=== PATIENT | male | born 1955 | race Caucasian/White ===

== ENCOUNTER 2022-02-05 11:43 | Emergency (ER) | payer OTHER | END 2022-02-05 14:15 | disposition home or self-care (01) | LOC: ERS 11:43 | DX: Z76.0 Encounter for issue of repeat prescription (principal); E11.65 Type 2 diabetes mellitus with hyperglycemia; E78.5 Hyperlipidemia, unspecified; Z79.899 Other long term (current) drug therapy | CPT/HCPCS: 36416; 99284 ==

== ENCOUNTER 2022-08-28 08:50 | Day surgery (SDC) | payer OTHER ==
[2022-08-23 11:28] VITALS: BMI 24.0
[2022-08-28] MEDS ORDERED: Ketorolac Tromethamine 30 MG/ML VIAL ONE (09:24)
[2022-08-28] MEDS ORDERED: Acetaminophen 500 MG TAB ONE (09:25)
[2022-08-28] MEDS ORDERED: fentaNYL PF 100 MCG/2 ML SYRINGE ONE (10:22)
[2022-08-28] MEDS ORDERED: Bupivacaine/Epinephrine 0.25% 30 ML VIAL ONE (10:23)
[2022-08-28] MEDS ORDERED: Sodium Chloride 0.9% 100 ML ONE (10:32)
[2022-08-28] MEDS ORDERED: CEFAZOLIN 2 GM VIAL ONE (10:32)
[2022-08-28] MEDS ORDERED: Dexamethasone 20 MG/5 ML VIAL ONE (10:41)
[2022-08-28] MEDS ORDERED: GLYCOPYRROLATE/PF 0.2 MG/ML VIAL ONE (10:41)
[2022-08-28] MEDS ORDERED: NEOSTIGMINE 3 MG/3 ML SYR 3 MG/3 ML SYRINGE ONE (10:41)
[2022-08-28] MEDS ORDERED: Ondansetron PF 4 MG/2 ML Vial ONE (10:41)
[2022-08-28] MEDS ORDERED: Rocuronium Bromide 10 MG/ML (10ML VIAL) ONE (10:41)
[2022-08-28] MEDS ORDERED: PROPOFOL 200 MG/20 ML VIAL ONE (10:41)
[2022-08-28] MEDS ORDERED: Labetalol HCl 100 MG/20 ML VIAL ONE (10:41)
[2022-08-28] MEDS ORDERED: Lidocaine 1% PF 5 ML VIAL ONE (10:41)
[2022-08-28] MEDS ORDERED: Midazolam HCl 5 mg/5 ml Vial ONE (11:18)
[2022-08-28] MEDS ORDERED: Fentanyl 250 MCG/5 ML VIAL ONE ×2 (12:06→12:07)
[2022-08-28] MEDS ORDERED: Promethazine HCl 25 MG/ML VIAL ONE (12:06)
== END 2022-08-28 14:15 | disposition home or self-care (01) ==
LOC: SDC 08:50
PROVIDERS: ATTEND Specialist
PROC: 0YU54JZ Supplement Right Inguinal Region with Synthetic Substitute, Percutaneous Endoscopic Approach (ICD-10-PCS; principal; 2022-08-28)
PROC: 8E0W4CZ Robotic Assisted Procedure of Trunk Region, Percutaneous Endoscopic Approach (ICD-10-PCS; 2022-08-28)
DX: K40.90 Unilateral inguinal hernia, without obstruction or gangrene, not specified as recurrent (principal); M19.90 Unspecified osteoarthritis, unspecified site; J45.909 Unspecified asthma, uncomplicated; E78.5 Hyperlipidemia, unspecified; E11.9 Type 2 diabetes mellitus without complications; Z87.891 Personal history of nicotine dependence; Z79.4 Long term (current) use of insulin; Z79.899 Other long term (current) drug therapy; Z91.041 Radiographic dye allergy status
CPT/HCPCS: 49650; 71045; C1781; J3490; J1100; J1885; J2250; J2405; J2550; J2704; J3010

== ENCOUNTER 2023-02-01 09:02 | Inpatient (IN) | payer OTHER ==
[2023-02-01 10:01] LABS: #Basophils 0.1 thou/uL (0.0-0.2); #Eosinphils 0.1 thou/uL (0.0-0.7); #Monocytes 0.4 thou/uL (0.11-0.59); #Neutrophils 5.7 thou/uL (1.40-6.50); %Basophils 0.6 % (0.0-1.0); %Eosinophils 1.5 % (0.0-10.0); %Lymphocytes 27.3 % (21.0-51.0); %Monocytes 4.4 % (0.0-10.0); %Neutrophils 65.7 % (42.0-75.0); Hematocrit 48.2 % (42.0-52.0); Hemoglobin 17.4 g/dL (14.0-18.0); Mean Corpuscular HGB CONC 36.1 g/dL (32.0-36.0); Mean Corpuscular Hemoglobin 33.6 pg (27.0-31.0); Mean Corpuscular Volume 93.1 fl (78.0-98.0); Mean Platelet Volume 9.9 fL (7.4-10.4); Platelet Count 193 10x3/uL (130-400); RBC Distribution Width 11.5 % (11.5-14.5); Red Blood Cell (RBC) Count 5.18 mill/uL (4.70-6.10); White Blood Cell (WBC) Count 8.6 10x3/uL (4.8-10.8)
[2023-02-01 10:21] LABS: ALT (SGPT) 37 U/L (8-55); AST (SGOT) 45 U/L (5-34); Albumin 4.8 g/dL (3.4-4.8); Alkaline Phosphatase 104 U/L (40-110); Anion Gap 17 mmol/L (10-20); BUN (Urea Nitrogen) 11 mg/dL (8.4-25.7); Bilirubin, Total 0.8 mg/dL (0.2-1.2); Calc. Creatinine Clearance 0 mL/min (70-130); Calcium 11.2 mg/dL (7.8-10.44); Carbon Dioxide 21 mmol/L (23-31); Chloride 107 mmol/L (98-107); Estimated GFR 68; Globulin 4.1 g/dL (2.4-3.5); Glucose 120 mg/dL (80-115); Lipase 10 U/L (8-78); Potassium 4.2 mmol/L (3.5-5.1); Protein, Total 8.9 g/dL (5.8-8.1); Sodium 141 mmol/L (136-145)
[2023-02-01] MEDS ORDERED: Famotidine/PF 20 mg/2ml Vial ONE (10:23)
[2023-02-01] MEDS ORDERED: diphenhydrAMINE 50 MG/ML VIAL ONE (10:23)
[2023-02-01] MEDS ORDERED: methylPREDNISolone Sod Succ 40 MG VIAL ONE (10:23)
[2023-02-01 10:32] LABS: Bacteria/HPF None Seen HPF (None Seen); Bilirubin Negative (Negative); Blood, Urine Negative (Negative); CAUTI Indications for Culture Dysuria,urgency,freq; Clarity Clear (Clear); Glucose, Urine (Dipstick) Normal (Negative); Ketone, Urine Negative (Negative); Leukocyte Negative Leu/uL (Negative); Nitrite Negative (Negative); Protein, Urine (Dipstick) Negative (Neg-Trace); RBC/HPF 0-3 HPF (0-3); Specific Gravity, Urine 1.007 (1.002-1.036); Squamous Epithelial None Seen HPF (0-3); Urobilinogen Normal mg/dL (Less than 2); WBC/HPF 0-3 HPF (0-3)
[2023-02-01 10:35] LABS: Urine Culture Reflex No No
[2023-02-01 13:14] LABS: Lactic Acid 0.8 mmol/L (0.5-2.2)
[2023-02-01] MEDS ORDERED: Dextrose 5% in Water 1,000 ML IV PRN (13:43)
[2023-02-01] MEDS ORDERED: Glucagon 1 MG/ML KIT IM PRN (13:43)
[2023-02-01] MEDS ORDERED: Dextrose 50% Abboject 50 ML SYRINGE SLOW IVP PRN (13:43)
[2023-02-01 14:28] LABS: Analyzer IN Cardio ER; pH (venous) 7.391 (7.32-7.43)
[2023-02-01 14:29] LABS: Actual Bicarbonate (HCO3v) 23.1 mEq/L (22-28); Base Excess -1.5 mEq/L (-2.0 to +3.0); Calcium, Ionized (venous) 1.16 mmol/L (1.16-1.32); Chloride (VBG) 108 mmol/L (98-106); Hematocrit-VBG 50 % (42.0-52.0); Hemoglobin (Hb) 17.1 g/dL (12.6-17.4); Sodium 142.3 mmol/L (133-146)
[2023-02-01] MEDS ORDERED: Iopamidol-370 76% 500 ML MDV (1 ML CHARGE) ONE (15:31)
[2023-02-01] MEDS ORDERED: HumaLOG 300 UNITS/3 ML VIAL ONE (17:03)
[2023-02-01] MEDS: HumaLOG 300 UNITS/3 ML VIAL SC PRN (17:06)
[2023-02-01] MEDS: Sodium Chloride 0.9% 1,000 ML IV SCH (17:10)
[2023-02-01 18:52] VITALS: BMI 21.0
[2023-02-01] MEDS: Insulin Glargine 30 UNITS/0.3 ML VIAL SC SCH (20:42)
[2023-02-01] MEDS: Atorvastatin Calcium 40 MG TAB PO SCH (20:43)
[2023-02-01] MEDS: Dexamethasone 4 mg/ml Vial SLOW IVP SCH ×2 (20:43→23:49)
[2023-02-02 05:46] LABS: #Monocytes 0.2 thou/uL (0.11-0.59); #Neutrophils 11.3 thou/uL (1.40-6.50); %Basophils 0.1 % (0.0-1.0); %Lymphocytes 8.4 % (21.0-51.0); %Monocytes 1.2 % (0.0-10.0); %Neutrophils 89.7 % (42.0-75.0); Hematocrit 45.9 % (42.0-52.0); Hemoglobin 15.6 g/dL (14.0-18.0); Mean Corpuscular Hemoglobin 33.5 pg (27.0-31.0); Mean Platelet Volume 9.9 fL (7.4-10.4); Platelet Count 191 10x3/uL (130-400); RBC Distribution Width 11.8 % (11.5-14.5); Red Blood Cell (RBC) Count 4.65 mill/uL (4.70-6.10); White Blood Cell (WBC) Count 12.6 10x3/uL (4.8-10.8)
[2023-02-02 05:52] LABS: Mean Corpuscular Volume 98.7 fl (78.0-98.0)
[2023-02-02] MEDS: Sodium Chloride 0.9% 1,000 ML IV SCH ×3 (05:59→21:46)
[2023-02-02] MEDS: Dexamethasone 4 mg/ml Vial SLOW IVP SCH ×2 (06:00→11:51)
[2023-02-02 06:15] LABS: ALT (SGPT) 29 U/L (8-55); AST (SGOT) 35 U/L (5-34); Albumin 3.9 g/dL (3.4-4.8); Alkaline Phosphatase 83 U/L (40-110); Anion Gap 13 mmol/L (10-20); BUN (Urea Nitrogen) 14 mg/dL (8.4-25.7); Bilirubin, Total 0.4 mg/dL (0.2-1.2); Calc. Creatinine Clearance 55 mL/min (70-130); Calcium 9.4 mg/dL (7.8-10.44); Carbon Dioxide 25 mmol/L (23-31); Cardiac Risk 3.7 (Less than 4.5); Chloride 102 mmol/L (98-107); Cholesterol 202 mg/dl (< 200 Desired); Estimated GFR 68; Globulin 3.3 g/dL (2.4-3.5); Glucose 206 mg/dL (80-115); HDL Cholesterol 55 mg/dL (>60 Neg Risk); LDL Cholesterol, Calculated 139 mg/dL; Potassium 4.8 mmol/L (3.5-5.1); Protein, Total 7.2 g/dL (5.8-8.1); Sodium 135 mmol/L (136-145); Triglycerides 41 mg/dL (Less than 150)
[2023-02-02] MEDS: Tamsulosin HCl 0.4 MG CAP PO SCH (08:05)
[2023-02-02] MEDS: Sertraline 100 MG TAB PO SCH (08:05)
[2023-02-02] MEDS: HumaLOG 300 UNITS/3 ML VIAL SC PRN ×3 (08:07→18:33)
[2023-02-02] MEDS ORDERED: Aspirin 81 mg Enteric Coated Tablet PO SCH (09:00)
[2023-02-02 11:10] LABS: Hemoglobin A1c 8.4 % (4.0-6.0)
[2023-02-02] MEDS ORDERED: Magnevist 469MG/ML 20 ML VIAL ONE (15:48)
[2023-02-02] MEDS ORDERED: Tamsulosin HCl 0.4 MG CAP PO SCH (21:00)
[2023-02-02] MEDS: Insulin Glargine 30 UNITS/0.3 ML VIAL SC SCH (21:47)
[2023-02-02] MEDS: Atorvastatin Calcium 40 MG TAB PO SCH (21:48)
[2023-02-03] MEDS: Tamsulosin HCl 0.4 MG CAP PO SCH (08:34)
[2023-02-03] MEDS: Sodium Chloride 0.9% 1,000 ML IV SCH ×2 (08:34→21:18)
[2023-02-03] MEDS: Sertraline 100 MG TAB PO SCH (08:35)
[2023-02-03 08:49] LABS: INR-International Normal Ratio 1.1; PTT 24.3 sec (22.9-36.1); Prothrombin Time 14.3 sec (12.0-14.7)
[2023-02-03 09:11] LABS: Amphetamine Not Detected (NotDetected); Barbiturates Screen Not Detected (NotDetected); Benzodiazepine Screen Not Detected (NotDetected); Cocaine Metabolite Screen Not Detected (NotDetected); Methadone Not Detected (NotDetected); Methamphetamine Not Detected (NotDetected); Opiate Screen Not Detected (NotDetected); Oxycodone Screen Not Detected (NotDetected); Phencyclidine (PCP) Not Detected (NotDetected); THC/Cannabinoid Screen Detected (NotDetected); Tricyclic Screen Not Detected (NotDetected)
[2023-02-03 09:15] LABS: Thyroid Stimulating Hormone 1.4334 uIU/mL (0.35-4.94)
[2023-02-03 09:22] LABS: Vitamin B12 563 pg/mL (211-911)
[2023-02-03 09:29] LABS: HIV (1/2) Antibody/Antigen Non-Reactive (NonReactive); HIV 1/2 INDEX 0.41 S/CO (<1.00)
[2023-02-03 12:45] LABS: CSF, Glucose 118 mg/dl (40-70); CSF, Protein 71 mg/dL (15-40)
[2023-02-03 13:00] LABS: CSF Source CSF; CSF WBC/NonHematics Count-Man 2 /cu.mm (0-5); Clarity Clear (Clear); Tube # 4
[2023-02-03 13:01] LABS: CSF RBC Count - Manual 1 /cu.mm (None Seen)
[2023-02-03] MEDS: HumaLOG 300 UNITS/3 ML VIAL SC PRN (14:10)
[2023-02-03] MEDS ORDERED: Insulin Glargine 30 UNITS/0.3 ML VIAL SC SCH (21:00)
[2023-02-03] MEDS: Insulin Glargine 30 UNITS/0.3 ML VIAL SC SCH (21:19)
[2023-02-03] MEDS: Atorvastatin Calcium 40 MG TAB PO SCH (21:19)
[2023-02-04] MEDS: Sodium Chloride 0.9% 1,000 ML IV SCH ×3 (03:53→21:51)
[2023-02-04] MEDS: Sertraline 100 MG TAB PO SCH (09:16)
[2023-02-04] MEDS: Tamsulosin HCl 0.4 MG CAP PO SCH (09:16)
[2023-02-04 10:54] LABS: Syphilis Antibody Nonreactive (Nonreactive); Syphilis Antibody Index 0.04 S/CO (<1.00 Non-Reactive)
[2023-02-04] MEDS: HumaLOG 300 UNITS/3 ML VIAL SC PRN (13:34)
[2023-02-04] MEDS: Atorvastatin Calcium 40 MG TAB PO SCH (21:04)
[2023-02-04] MEDS: Insulin Glargine 30 UNITS/0.3 ML VIAL SC SCH (21:04)
[2023-02-05] MEDS: Tamsulosin HCl 0.4 MG CAP PO SCH (09:16)
[2023-02-05] MEDS: Sertraline 100 MG TAB PO SCH (09:16)
[2023-02-05] MEDS: Sodium Chloride 0.9% 1,000 ML IV SCH ×2 (09:18→23:14)
[2023-02-05] MEDS: Senokot S 8.6-50 MG TAB PO PRN (10:34)
[2023-02-05 13:42] LABS: ANA Symphony (Qualitative) Negative (Negative); ANA Symphony (Quantitative) 0.3 Ratio (< 0.7 Negative)
[2023-02-05 13:43] LABS: Jo-1 IgG Antibody Less than 0.3 EliAU/mL (<7 Negative)
[2023-02-05] MEDS: Atorvastatin Calcium 40 MG TAB PO SCH (20:34)
[2023-02-05] MEDS: Insulin Glargine 30 UNITS/0.3 ML VIAL SC SCH (20:34)
[2023-02-05] MEDS: HumaLOG 300 UNITS/3 ML VIAL SC PRN (23:13)
[2023-02-06] MEDS: Sodium Chloride 0.9% 1,000 ML IV SCH ×2 (03:25→14:50)
[2023-02-06] MEDS: Tamsulosin HCl 0.4 MG CAP PO SCH (08:29)
[2023-02-06] MEDS: Sertraline 100 MG TAB PO SCH (08:29)
[2023-02-06] MEDS: HumaLOG 300 UNITS/3 ML VIAL SC PRN ×2 (14:40→20:08)
[2023-02-06] MEDS: Insulin Glargine 30 UNITS/0.3 ML VIAL SC SCH (20:06)
[2023-02-06] MEDS: Atorvastatin Calcium 40 MG TAB PO SCH (20:06)
[2023-02-06] MEDS: Acetaminophen 325 MG TAB PO PRN (21:33)
[2023-02-07] MEDS: Tamsulosin HCl 0.4 MG CAP PO SCH (08:42)
[2023-02-07] MEDS: Sertraline 100 MG TAB PO SCH (08:42)
[2023-02-07] MEDS ORDERED: Tamsulosin HCl 0.4 MG CAP PO SCH (09:00)
[2023-02-07] MEDS ORDERED: Sertraline 25 MG TAB PO SCH (09:00)
[2023-02-07] MEDS: HumaLOG 300 UNITS/3 ML VIAL SC PRN (18:24)
[2023-02-07] MEDS: Atorvastatin Calcium 40 MG TAB PO SCH (21:03)
[2023-02-07] MEDS: Senokot S 8.6-50 MG TAB PO PRN (21:03)
[2023-02-07] MEDS: Insulin Glargine 30 UNITS/0.3 ML VIAL SC SCH (21:03)
[2023-02-08] MEDS: Tamsulosin HCl 0.4 MG CAP PO SCH (08:13)
[2023-02-08] MEDS: Sertraline 100 MG TAB PO SCH (08:13)
[2023-02-08] MEDS: Senokot S 8.6-50 MG TAB PO PRN (20:04)
[2023-02-08] MEDS: Atorvastatin Calcium 40 MG TAB PO SCH (20:04)
[2023-02-08] MEDS: Insulin Glargine 30 UNITS/0.3 ML VIAL SC SCH (20:12)
[2023-02-09] MEDS: Sertraline 100 MG TAB PO SCH (08:37)
[2023-02-09] MEDS: Tamsulosin HCl 0.4 MG CAP PO SCH (08:37)
[2023-02-09] MEDS: Betamethasone 0.1% Cream 45 GM TUBE TOP SCH (15:51)
[2023-02-09] MEDS: Insulin Glargine 30 UNITS/0.3 ML VIAL SC SCH (20:59)
[2023-02-09] MEDS: HumaLOG 300 UNITS/3 ML VIAL SC PRN (20:59)
[2023-02-09] MEDS: Atorvastatin Calcium 40 MG TAB PO SCH (21:00)
[2023-02-10] MEDS: Tamsulosin HCl 0.4 MG CAP PO SCH (08:31)
[2023-02-10] MEDS: Sertraline 100 MG TAB PO SCH (08:33)
[2023-02-10] MEDS: Betamethasone 0.1% Cream 45 GM TUBE TOP SCH (09:56)
[2023-02-10] MEDS ORDERED: Magnevist 469MG/ML 20 ML VIAL ONE (11:45)
[2023-02-10] MEDS: HumaLOG 300 UNITS/3 ML VIAL SC PRN (13:17)
[2023-02-10 16:10] LABS: #Basophils 0.1 thou/uL (0.0-0.2); #Eosinphils 0.2 thou/uL (0.0-0.7); #Monocytes 0.8 thou/uL (0.11-0.59); #Neutrophils 9.2 thou/uL (1.40-6.50); %Basophils 0.8 % (0.0-1.0); %Eosinophils 1.2 % (0.0-10.0); %Lymphocytes 15.7 % (21.0-51.0); %Monocytes 6.5 % (0.0-10.0); %Neutrophils 75.1 % (42.0-75.0); Hematocrit 45.8 % (42.0-52.0); Hemoglobin 15.9 g/dL (14.0-18.0); Mean Corpuscular HGB CONC 34.7 g/dL (32.0-36.0); Mean Corpuscular Volume 98.1 fl (78.0-98.0); Mean Platelet Volume 9.9 fL (7.4-10.4); Platelet Count 182 10x3/uL (130-400); RBC Distribution Width 11.7 % (11.5-14.5); Red Blood Cell (RBC) Count 4.67 mill/uL (4.70-6.10); White Blood Cell (WBC) Count 12.2 10x3/uL (4.8-10.8)
[2023-02-10 16:34] LABS: CRP (Inflammatory) Less than 0.50 mg/dL (= or < 0.5); Uric Acid 5.6 mg/dL (3.5-7.2)
[2023-02-10] MEDS ORDERED: PRIVIGEN IVPB SCH (17:00)
[2023-02-10] MEDS ORDERED: Privigen 10 GM in Admixture Fee 1 EACH IVPB SCH (17:00)
[2023-02-10] MEDS ORDERED: ADMIXTURE FEE IVPB SCH (17:00)
[2023-02-10] MEDS: Privigen 20 GM, Privigen 10 GM in Admixture Fee 1 EACH IVPB SCH (19:12)
[2023-02-10] MEDS: Insulin Glargine 30 UNITS/0.3 ML VIAL SC SCH (20:36)
[2023-02-10] MEDS: Atorvastatin Calcium 40 MG TAB PO SCH (20:36)
[2023-02-11 06:31] LABS: #Basophils 0.1 thou/uL (0.0-0.2); #Eosinphils 0.2 thou/uL (0.0-0.7); #Monocytes 0.6 thou/uL (0.11-0.59); #Neutrophils 4.2 thou/uL (1.40-6.50); %Basophils 0.9 % (0.0-1.0); %Eosinophils 2.3 % (0.0-10.0); %Lymphocytes 22.5 % (21.0-51.0); %Monocytes 9.4 % (0.0-10.0); %Neutrophils 64.1 % (42.0-75.0); Hematocrit 43.6 % (42.0-52.0); Hemoglobin 15.1 g/dL (14.0-18.0); Mean Corpuscular HGB CONC 34.6 g/dL (32.0-36.0); Mean Corpuscular Hemoglobin 33.9 pg (27.0-31.0); Mean Platelet Volume 9.8 fL (7.4-10.4); Platelet Count 178 10x3/uL (130-400); RBC Distribution Width 11.5 % (11.5-14.5); Red Blood Cell (RBC) Count 4.45 mill/uL (4.70-6.10); White Blood Cell (WBC) Count 6.5 10x3/uL (4.8-10.8)
[2023-02-11 07:04] LABS: Anion Gap 13 mmol/L (10-20); BUN (Urea Nitrogen) 20 mg/dL (8.4-25.7); Calc. Creatinine Clearance 63 mL/min (70-130); Carbon Dioxide 28 mmol/L (23-31); Chloride 100 mmol/L (98-107); Potassium 4.2 mmol/L (3.5-5.1); Sodium 137 mmol/L (136-145)
[2023-02-11 07:05] LABS: Calcium 9.8 mg/dL (7.8-10.44); Estimated GFR 81; Glucose 109 mg/dL (80-115)
[2023-02-11] MEDS: Betamethasone 0.1% Cream 45 GM TUBE TOP SCH (08:31)
[2023-02-11] MEDS: Sertraline 100 MG TAB PO SCH (08:31)
[2023-02-11] MEDS: Tamsulosin HCl 0.4 MG CAP PO SCH (08:32)
[2023-02-11 12:48] LABS: Cardiolipin IgG Ab 1.1 GPL-U/mL (<10 Negative); Cardiolipin IgM Ab Less than 0.9 MPL-U/mL (<10 Negative); EliA APS New Method **** NEW METHOD ****; beta-2-Glycoprotein I IgG Ab 0.9 U/mL (<7 Negative); beta-2-Glycoprotein I IgM Abs Less than 2.4 U/mL (<7 Negative)
[2023-02-11] MEDS: HumaLOG 300 UNITS/3 ML VIAL SC PRN ×2 (13:07→18:16)
[2023-02-11] MEDS: Privigen 20 GM, Privigen 10 GM in Admixture Fee 1 EACH IVPB SCH (18:17)
[2023-02-11] MEDS: Atorvastatin Calcium 40 MG TAB PO SCH (20:12)
[2023-02-11] MEDS: Acetaminophen 325 MG TAB PO PRN (20:15)
[2023-02-11] MEDS: Insulin Glargine 30 UNITS/0.3 ML VIAL SC SCH (20:16)
[2023-02-12] MEDS: HumaLOG 300 UNITS/3 ML VIAL SC PRN ×3 (06:11→17:00)
[2023-02-12] MEDS: Tamsulosin HCl 0.4 MG CAP PO SCH (08:22)
[2023-02-12] MEDS: Sertraline 100 MG TAB PO SCH (08:22)
[2023-02-12] MEDS: Betamethasone 0.1% Cream 45 GM TUBE TOP SCH (08:23)
[2023-02-12 12:15] LABS: DRVVT Confirm 32.8
[2023-02-12] MEDS: ADMIXTURE FEE IVPB SCH (18:12)
[2023-02-12] MEDS: PRIVIGEN IVPB SCH (18:12)
[2023-02-12] MEDS: Insulin Glargine 30 UNITS/0.3 ML VIAL SC SCH (20:32)
[2023-02-12] MEDS: Atorvastatin Calcium 40 MG TAB PO SCH (20:32)
[2023-02-12] MEDS: Senokot S 8.6-50 MG TAB PO PRN (20:52)
[2023-02-13] MEDS: Acetaminophen 325 MG TAB PO PRN (05:34)
[2023-02-13 07:48] LABS: #Basophils 0.1 thou/uL (0.0-0.2); #Eosinphils 0.2 thou/uL (0.0-0.7); #Monocytes 0.4 thou/uL (0.11-0.59); #Neutrophils 4.2 thou/uL (1.40-6.50); %Eosinophils 2.5 % (0.0-10.0); %Lymphocytes 19.9 % (21.0-51.0); %Monocytes 6.8 % (0.0-10.0); %Neutrophils 69.5 % (42.0-75.0); Hemoglobin 14.9 g/dL (14.0-18.0); Mean Corpuscular HGB CONC 34.7 g/dL (32.0-36.0); Mean Corpuscular Hemoglobin 33.6 pg (27.0-31.0); Mean Corpuscular Volume 96.8 fl (78.0-98.0); Mean Platelet Volume 9.7 fL (7.4-10.4); Platelet Count 166 10x3/uL (130-400); RBC Distribution Width 11.3 % (11.5-14.5); Red Blood Cell (RBC) Count 4.44 mill/uL (4.70-6.10)
[2023-02-13 08:20] LABS: Anion Gap 13 mmol/L (10-20); BUN (Urea Nitrogen) 17 mg/dL (8.4-25.7); Calc. Creatinine Clearance 74 mL/min (70-130); Calcium 9.6 mg/dL (7.8-10.44); Carbon Dioxide 22 mmol/L (23-31); Chloride 100 mmol/L (98-107); Estimated GFR 94; Glucose 141 mg/dL (80-115); Potassium 3.9 mmol/L (3.5-5.1); Sodium 131 mmol/L (136-145)
[2023-02-13] MEDS: Tamsulosin HCl 0.4 MG CAP PO SCH (08:29)
[2023-02-13] MEDS: Sertraline 100 MG TAB PO SCH (08:29)
[2023-02-13] MEDS: Betamethasone 0.1% Cream 45 GM TUBE TOP SCH (08:30)
[2023-02-13] MEDS: HumaLOG 300 UNITS/3 ML VIAL SC PRN (18:11)
[2023-02-13] MEDS: ADMIXTURE FEE IVPB SCH (18:11)
[2023-02-13] MEDS: PRIVIGEN IVPB SCH (18:11)
[2023-02-13] MEDS: Atorvastatin Calcium 40 MG TAB PO SCH (19:33)
[2023-02-13] MEDS: Insulin Glargine 30 UNITS/0.3 ML VIAL SC SCH (19:33)
[2023-02-14] MEDS: Acetaminophen 325 MG TAB PO PRN ×2 (06:09→20:38)
[2023-02-14] MEDS: Tamsulosin HCl 0.4 MG CAP PO SCH (09:01)
[2023-02-14] MEDS: Sertraline 100 MG TAB PO SCH (09:01)
[2023-02-14] MEDS: Betamethasone 0.1% Cream 45 GM TUBE TOP SCH (09:01)
[2023-02-14] MEDS: Insulin Glargine 30 UNITS/0.3 ML VIAL SC SCH (20:32)
[2023-02-14] MEDS: Atorvastatin Calcium 40 MG TAB PO SCH (20:32)
[2023-02-15] MEDS: Acetaminophen 325 MG TAB PO PRN (03:57)
[2023-02-15] MEDS: HumaLOG 300 UNITS/3 ML VIAL SC PRN ×2 (03:58→17:53)
[2023-02-15] MEDS ORDERED: Fioricet 325/50/40 mg Tablet PO SCH (04:45)
[2023-02-15] MEDS: Senokot S 8.6-50 MG TAB PO PRN (05:00)
[2023-02-15] MEDS: Betamethasone 0.1% Cream 45 GM TUBE TOP SCH (08:55)
[2023-02-15] MEDS: Tamsulosin HCl 0.4 MG CAP PO SCH (08:56)
[2023-02-15] MEDS: Sertraline 100 MG TAB PO SCH (08:56)
[2023-02-15] MEDS: Atorvastatin Calcium 40 MG TAB PO SCH (21:00)
[2023-02-15] MEDS: Insulin Glargine 30 UNITS/0.3 ML VIAL SC SCH (21:06)
[2023-02-16] MEDS: Sertraline 100 MG TAB PO SCH (09:06)
[2023-02-16] MEDS: Tamsulosin HCl 0.4 MG CAP PO SCH (09:06)
[2023-02-16] MEDS: Betamethasone 0.1% Cream 45 GM TUBE TOP SCH (09:06)
[2023-02-16] MEDS ORDERED: Fioricet 325/50/40 mg Tablet PO PRN (15:54)
[2023-02-16] MEDS: Gabapentin 300 MG CAP PO SCH (20:48)
[2023-02-16] MEDS: Atorvastatin Calcium 40 MG TAB PO SCH (20:50)
[2023-02-16] MEDS: HumaLOG 300 UNITS/3 ML VIAL SC PRN (20:51)
[2023-02-16] MEDS: Insulin Glargine 30 UNITS/0.3 ML VIAL SC SCH (20:51)
[2023-02-17] MEDS: Sertraline 100 MG TAB PO SCH (08:25)
[2023-02-17] MEDS: Tamsulosin HCl 0.4 MG CAP PO SCH (08:25)
[2023-02-17] MEDS: Gabapentin 300 MG CAP PO SCH ×3 (08:25→20:14)
[2023-02-17] MEDS: Betamethasone 0.1% Cream 45 GM TUBE TOP SCH (08:27)
[2023-02-17] MEDS: Atorvastatin Calcium 40 MG TAB PO SCH (20:14)
[2023-02-17] MEDS: Insulin Glargine 30 UNITS/0.3 ML VIAL SC SCH (20:15)
[2023-02-18] MEDS: Tamsulosin HCl 0.4 MG CAP PO SCH (08:48)
[2023-02-18] MEDS: Sertraline 100 MG TAB PO SCH (08:48)
[2023-02-18] MEDS: Gabapentin 300 MG CAP PO SCH ×3 (08:49→20:42)
[2023-02-18] MEDS: Betamethasone 0.1% Cream 45 GM TUBE TOP SCH (08:49)
[2023-02-18] MEDS: Atorvastatin Calcium 40 MG TAB PO SCH (20:42)
[2023-02-18] MEDS: Insulin Glargine 30 UNITS/0.3 ML VIAL SC SCH (20:43)
[2023-02-19] MEDS: Acetaminophen 325 MG TAB PO PRN (04:29)
[2023-02-19] MEDS: Senokot S 8.6-50 MG TAB PO PRN (04:29)
[2023-02-19] MEDS: Tamsulosin HCl 0.4 MG CAP PO SCH (08:29)
[2023-02-19] MEDS: Gabapentin 300 MG CAP PO SCH ×2 (08:29→14:56)
[2023-02-19] MEDS: Betamethasone 0.1% Cream 45 GM TUBE TOP SCH (08:29)
[2023-02-19] MEDS: Sertraline 100 MG TAB PO SCH (08:29)
[2023-02-19] MEDS: HumaLOG 300 UNITS/3 ML VIAL SC PRN (12:38)
[2023-02-19 16:31] VITALS: BP 157/77; TEMP 98.3
== END 2023-02-19 18:40 | disposition home or self-care (01) | DRG 74 ==
LOC: ERS 09:02 → ERHOLD 13:42 → 2SE 18:36 → EEVIPCON 02-03 14:02 → OBSVTOIN 02-03 14:02 → T4-B 02-03 20:19 → T4-A 02-18 15:51 → T4-B 02-18 15:52
PROVIDERS: ADMIT Internal Medicine; ATTEND Hospitalist
DX: E11.40 Type 2 diabetes mellitus with diabetic neuropathy, unspecified (principal); E87.20 Acidosis, unspecified; N40.0 Benign prostatic hyperplasia without lower urinary tract symptoms; F41.9 Anxiety disorder, unspecified; F32.A Depression, unspecified; R33.9 Retention of urine, unspecified; R15.9 Full incontinence of feces; M48.061 Spinal stenosis, lumbar region without neurogenic claudication; F12.10 Cannabis abuse, uncomplicated; Z91.041 Radiographic dye allergy status; Z79.899 Other long term (current) drug therapy; Z79.4 Long term (current) use of insulin; Z87.891 Personal history of nicotine dependence
CPT/HCPCS: 36415; 36416; 51702; 62270; 70496; 70498; 70551; 71045; 72146; 72148; 72149; 72156; 74177; 80048; 80053; 80061; 80306; 81001; 82085; 82525; 82550; 82607; 82805; 82945; 83036; 83605; 83690; 83735; 83880; 84145; 84157; 84425; 84443; 84550; 85025; 85610; 85613; 85730; 86038; 86140; 86146; 86147; 86160; 86225; 86235; 86618; 86780; 87040; 87070; 87086; 87205; 87389; 87899; 89051; 96374; 96375; 96376; A9579; G0378; J1100; J1200; J1459; J1815; J2920; J7050; Q9967; S0028